=== PATIENT | female | born 1970 | race Two or more races ===

== ENCOUNTER 2023-12-22 17:10 | Emergency (ER) | payer OTHER ==
[~2023-12-22] VITALS: Ht 165.1 cm; Wt 86.3 kg
[2023-12-22 21:32] VITALS: BP 158/94; PULSE 60; RESP 20; TEMP 98.7; O2SAT 100
== END 2023-12-22 23:08 | disposition left against medical advice (07) ==
LOC: EDBD 17:10 → ER 17:10
DX: R51.9 Headache, unspecified (principal); M54.2 Cervicalgia; Z53.21 Procedure and treatment not carried out due to patient leaving prior to being seen by health care provider
CPT/HCPCS: 72040